=== PATIENT | male | born 1980 | race Caucasian/White ===

== ENCOUNTER 2019-01-05 20:30 | Observation (INO) ==
[2019-01-06 00:16] LABS: Alanine Aminotransferase 24 Units/L (7-52); Albumin 4.6 g/dL (3.5-5.7); Albumin/Globulin Ratio 1.4 (1.1-2.2); Alkaline Phosphatase 41 Units/L (34-104); Amylase 21 Units/L (29-103); Aspartate Amino Transferase 22 Units/L (13-39); BUN/Creatinine Ratio 15 (6-26); Bilirubin,Indirect 0.3 mg/dL (0.0-1.2); Bilirubin,Total 0.3 mg/dL (0.3-1.0); Blood Urea Nitrogen 13 mg/dL (6-20); Calcium 9.7 mg/dL (8.6-10.3); Carbon Dioxide 24 mEq/L (23-29); Chloride 102 mEq/L (98-107); Globulin 3.2 g/dL (2.4-3.5); Glucose 106 mg/dL (70-105); Lipase 27 Units/L (11-82); Osmolality,Calculated 283 (280-300); Potassium 3.7 mEq/L (3.5-5.1); Sodium 136 mEq/L (136-145); Total Protein 7.8 g/dL (6.4-8.9); eGFR For African Americans > 60 (> 60); eGFR For Non-African Americans > 60 (> 60)
[2019-01-06] MEDS ORDERED: Ondansetron 4 MG/2 ML VIAL IVP ONE (00:22)
[2019-01-06] MEDS ORDERED: Morphine Sulfate 2 MG/ML SYRINGE IVP ONE ×2 (00:22→04:25)
[2019-01-06 00:41] LABS: Basophils # 0.1 K/mcL (0.0-0.2); Basophils % 0.8 %; Eosinophils # 0.3 K/mcL (0.0-0.6); Eosinophils % 2.1 %; Hematocrit 44.4 % (37.5-50.1); Hemoglobin 14.3 g/dL (12.9-16.9); Immature Granulocytes % 0.3 % (0-4); Lymphocytes # 2.1 K/mcL (0.6-4.6); Lymphocytes % 17.5 %; Mean Corpuscular HGB Conc 32.2 g/dL (31.6-35.5); Mean Corpuscular Hemoglobin 27.5 pg (28.0-33.3); Mean Corpuscular Volume 85.4 fL (83.0-100.0); Monocytes # 0.6 K/mcL (0.0-1.3); Monocytes % 5.4 %; Neutrophils # 8.8 K/mcL (1.6-8.9); Platelet Count 379 K/mcL (140-400); Red Cell Distribution Width 13.7 % (11.5-14.5); Segmented Neutrophils % 73.9 %; White Blood Count 11.8 K/mcL (4.3-11.1)
[2019-01-06 02:20] LABS: Bilirubin,Urine Negative (Negative); Blood,Urine Negative (Negative); Clarity,Urine Clear (Clear); Color,Urine Yellow (Yellow); Glucose,Urine (UA) Normal (Normal); Ketones,Urine Trace mg/dL (Negative); Leukocyte Esterase,Urine Negative (Negative); Nitrite,Urine Negative (Negative); Protein,Urine Negative (Neg-Trace); Specific Gravity,Urine > 1.030 (1.010-1.025); Urobilinogen,Urine Normal (Normal)
[2019-01-06] MEDS ORDERED: Famotidine 20 MG/2 ML VIAL IVP ONE (04:25)
--- NOTE | 2019-01-06 04:33 | Emergency Department Note ---
Disposition Clinical Impression: Nausea & vomiting Qualifiers: Vomiting type: unspecified Vomiting Intractability: non-intractable Qualified Code(s): R11.2 - Nausea with vomiting, unspecified Abdominal pain Qualifiers: Abdominal location: right upper quadrant Qualified Code(s): R10.11 - Right upper quadrant pain Disposition: Admitted As Inpatient Condition: Fair Time of Disposition: 04:35 Abdominal Pain HPI - General Chief Complaint: ED Abdominal Pain Stated Complaint: Epigastric Pain Time Seen by Provider: 01/05/19 23:49 Source: patient Nursing Notes Reviewed: Yes Vital Signs Reviewed: Yes - History of Present Illness HPI Narrative: 38-year-old male complaining of right upper quadrant pain radiating from into the epigastric region. Denies any ripping or tearing pain pain does not radiate to her through the back. Denies any right shoulder pain. Movement does make it worse but denies any significant injury. Shunt has vomited several times today. Patient had several episodes of emesis here. The most recent was bilious. Patient has remained to have some dry heaves., Patient had a CT scan ordered by the family doctor this morning which did not show any significant abnormality. No sick contacts Pt Subjective Complaint: abdominal pain Onset (ago): week(s) (1) Consistency: constant, Worsening Location: RUQ, epigastric Pain Severity: moderate, severe Pain Scale: 9 Quality: stabbing, sharp, dull Radiation: RUQ, epigastric Migration to: epigastric Improves with: vomiting, medication Worsens with: eating, movement Associated symptoms: Reports: nausea, vomiting, constipation. Denies: diarrhea, hematemesis, hematochezia, melena, hematuria - Related Data Home Medications Medication Instructions Recorded Confirmed Ativan 02/18/18 Buspar 02/18/18 Ibuprofen 02/18/18 BuPROPion [Wellbutrin] 300 mg PO 01/06/19 LORazepam [Ativan] 0.5 mg PO 01/06/19 Allergies Allergy/AdvReac Type Severity Reaction Status Date / Time No Known Allergies Allergy Verified 01/05/19 21:03 All systems ED: reviewed and negative except as stated. Constitutional: Reports: weight change (10-12 pound weight loss over the last week). Denies: fever, chills, weakness Eyes: Denies: eye pain, eye discharge, vision change ENT ED: Denies: ear pain, throat pain, dental pain, hearing loss, epistaxis, c ongestion, dysphagia Cardiovascular: Denies: chest pain, palpitations, dyspnea on exertion, edema, syncope Respiratory: Denies: cough, dyspnea, wheezes, hemoptysis, stridor Gastrointestinal: Reports: abdominal pain, nausea, vomiting. Denies: diarrhea, constipation, hematemesis, melena, hematochezia Genitourinary: Denies: urgency, dysuria, frequency, hematuria Musculoskeletal: Denies: back pain, neck pain, arthralgia, myalgia Integumentary: Denies: rash, abrasion, lesions Neurological: Denies: headache, weakness, numbness, paresthesias, confusion, abnormal gait, vertigo Psychiatric: Denies: anxiety, depression, suicidal thoughts, homicidal thoughts, auditory hallucinations, visual hallucinations Endocrine: Denies: fatigue Hematological/Lymphatic: Denies: easy bleeding, easy bruising Allergic/Immunologic: Denies: facial swelling, urticaria Abdominal Pain PMH - Past Medical History Medical history: Reports: other Male Surgical History: Reports: herniorrhaphy Psychiatric history: Reports: anxiety - Social History Smoking status: Never smoker Alcohol use: Reports: none Drug use: Reports: none Physical Exam - General Limitations: no limitations General appearance: alert - Head Head exam: atraumatic, normocephalic, normal inspection - Eye Eye exam: Present: normal appearance, PERRL, EOMI - ENT ENT exam: normal exam, normal oropharynx, mucous membranes dry - Neck Neck exam: Present: normal inspection, full ROM, trachea midline - Chest Chest inspection: Present: normal inspection, symmetric chest wall rise - Respiratory Respiratory exam: Present: normal lung sounds bilaterally. Absent: respiratory distress, wheezes - Cardiovascular Cardiovascular exam: Present: regular rate, normal rhythm, normal heart sounds - Abdominal Exam Abdominal exam: Present: soft, Non-Tender, tenderness (Right upper quadrant and epigastric tenderness with a positive Romeo sign and seems to follow the liver border), normal bowel sounds. Absent: distention, guarding, rebound, rigidity Abdominal tenderness: Present: RUQ - Extremities Exam Extremities exam: Present: normal inspection, full ROM, normal capillary refill. Absent: tenderness, pedal edema - Back Exam Back exam: Present: normal inspection, full ROM. Absent: tenderness, CVA tenderness (R), CVA tenderness (L), muscle spasm, paraspinal tenderness, vertebral tenderness - Neurological Exam Neurological exam: Present: alert, oriented X3, CN II-XII intact - Psychiatric Psychiatric exam: Present: normal affect, normal mood - Skin Skin exam: Present: warm, dry, intact, normal color Course Course Narrative: Patient was given normal saline IV bolus of fluid, Zofran and morphine for pain. CT scan from earlier today was reviewed. Ultrasound report quadrant was obtained which showed no acute fluid collection, cholecystitis, cholelithiasis or choledocholithiasis Patient's nausea and pain did improve but persisted. Patient did receive a second dose of morphine. Patient will be admitted to Dr. Leroy for intractable nausea and vomiting with continued intractable nausea with multiple episodes in the emergency department w/ bilious emesis (which was witnessed by me). - Consultations Consultation #1: Dr. Leroy accepts patient Time: 03:05 Vital Signs Temperature 98.5 F 01/05/19 21:03 Pulse Rate 81 01/05/19 21:03 Respiratory Rate 20 01/05/19 21:03 Blood Pressure 143/92 01/05/19 21:03 O2 Sat by Pulse Oximetry 98 01/05/19 21:03 Temperature 98.0 F 01/06/19 07:35 Pulse Rate 80 01/06/19 07:35 Respiratory Rate 16 01/06/19 07:35 Blood Pressure 108/68 01/06/19 07:35 O2 Sat by Pulse Oximetry 98 01/06/19 07:35 Oxygen Delivery Oxygen Delivery Room Air Abdominal Pain - Differential Diagnosis Differential Diagnosis: Likely: constipation, colonic obstruction, diverti culitis, gastroenteritis, pancreatitis, small bowel obstruction - Medical Records Medical records reviewed: Yes I reviewed the patient's medical records. - Lab Data Lab results reviewed: Yes I reviewed the patient's lab results. Result diagrams: 01/06/19 06:44 01/06/19 06:44 Lab Results 01/05/19 01/05/19 01/06/19 Range/Units 22:29 22:29 02:01 WBC 11.8 H (4.3-11.1) K/mcL RBC 5.20 (4.19-5.50) M/mcL Hgb 14.3 (12.9-16.9) g/dL Hct 44.4 (37.5-50.1) % MCV 85.4 (83.0-100.0) fL MCH 27.5 L (28.0-33.3) pg MCHC 32.2 (31.6-35.5) g/dL RDW 13.7 (11.5-14.5) % Plt Count 379 (140-400) K/mcL MPV 9.0 L (9.4-12.4) fL Immature Gran % 0.3 (0-4) % Seg Neutrophils % 73.9 % Lymphocytes % 17.5 % Monocytes % 5.4 % Eosinophils % 2.1 % Basophils % 0.8 % Neutrophils # 8.8 (1.6-8.9) K/mcL Lymphocytes # 2.1 (0.6-4.6) K/mcL Monocytes # 0.6 (0.0-1.3) K/mcL Eosinophils # 0.3 (0.0-0.6) K/mcL Basophils # 0.1 (0.0-0.2) K/mcL Sodium 136 (136-145) mEq/L Potassium 3.7 (3.5-5.1) mEq/L Chloride 102 (98-107) mEq/L Carbon Dioxide 24 (23-29) mEq/L BUN 13 (6-20) mg/dL Creatinine 0.87 (0.70-1.30) mg/dL Est GFR ( Amer) > 60 (> 60) Est GFR (Non-Af Amer) > 60 (> 60) BUN/Creatinine Ratio 15 (6-26) Glucose 106 H (70-105) mg/dL Calculated Osmolality 283 (280-300) Calcium 9.7 (8.6-10.3) mg/dL Total Bilirubin 0.3 (0.3-1.0) mg/dL Direct Bilirubin 0.0 (0.0-0.2) mg/dL Indirect Bilirubin 0.3 (0.0-1.2) mg/dL AST 22 (13-39) Units/L ALT 24 (7-52) Units/L Alkaline Phosphatase 41 (34-104) Units/L Serum Total Protein 7.8 (6.4-8.9) g/dL Albumin 4.6 (3.5-5.7) g/dL Globulin 3.2 (2.4-3.5) g/dL Albumin/Globulin Ratio 1.4 (1.1-2.2) Amylase 21 L (29-103) Units/L Lipase 27 (11-82) Units/L Urine Color Yellow (Yellow) Urine Clarity Clear (Clear) Urine pH 6.0 (5.0-8.0) pH Units Ur Specific [place] > 1.030 H (1.010-1.025) Urine Protein Negative (Neg-Trace) mg/dL Urine Glucose (UA) Normal (Normal) mg/dL Urine Ketones Trace H (Negative) mg/dL Urine Blood Negative (Negative) Urine Nitrite Negative (Negative) Urine Bilirubin Negative (Negative) Urine Urobilinogen Normal (Normal) mg/dL Ur Leukocyte Esterase Negative (Negative) Ur Culture Indicated? NO (NO) - Radiology Data Radiology results reviewed: Yes I reviewed the patient's radiology results. Chest/Abdomen X-ray 01/06/19 00:50 IMPRESSION: No acute radiographic abnormality identified. D/ / Joann Winslow Cha, MD / Joann Winslow Cha, MD Interpreting Provider: Joann Winslow Cha, MD Gallbladder Ultrasound 01/06/19 02:40 IMPRESSION: Unremarkable right upper quadrant ultrasound. Normal gallbladder and bile ducts. D/ / Richie Houston / Richie Houston Interpreting Provider: Richie Houston
[2019-01-06] MEDS ORDERED: Naloxone 0.4 MG/ML INJ IVP PRN (06:10)
[2019-01-06] MEDS ORDERED: traMADol 50 MG TABLET PO PRN (06:12)
[2019-01-06] MEDS ORDERED: 0.9 % Sodium Chloride 1,000 ML IVC SCH (06:15)
--- NOTE | 2019-01-06 06:29 | Internal Med History&Physical ---
Date of Encounter: 01/06/19 Time of Encounter: 05:45 Internal Medicine - H&P: HPI Chief complaint: Abdominal Pain, Nausea/Vomiting Admitted From: Home Plans for Post Hospital Care: Home History of present illness: Mr. Pennington is a 38 year old male with past medical history significant for anxiety who presents for 1 week history of right upper quadrant abdominal pain radiating to the center of his abdomen and nausea and vomiting for past 2 days. Reports pain as being sharp and rates it at 8/10 when at its worst. Denies any alleviating or exacerbating factors. Has tried Tylenol at home with minimal improvement. Denies any fevers, chills, diarrhea. Does report that his stool has been consultant in color and he has been having smaller bowel movements than normal but denies any other changes. Also reports 12 pound weight loss over past week as well due to decreased intake. Denies any hematochezia or hematemesis. Denies any similar symptoms in the past. Denies any sick contacts. Seen his PCP for same who ordered a CT of the abdomen and pelvis which showed a 1.2 cm pulmonary nodule seen in the left upper lobe which recommended CT scan of the chest to better evaluate but otherwise unremarkable abdomen and pelvis. ER obtained a chest/abdomen x-ray which showed no acute radiographic abnormality. ER also performed a gallbladder ultrasound which showed an unremarkable right upper quadrant ultrasound and normal gallbladder and bile ducts. ER gave patient Pepcid, morphine, and Zofran which he reports completely relieved his nausea and has improved his pain. Currently denies any headache, chest pain, shortness of breath, nausea, or bladder changes. Reports following regularly with his PCP. Past Med Surg Social Fam HX - Past Medical History Psychiatric history: anxiety - Past Surgical History Surgical History: herniorrhaphy - Social History Smoking Status: Never smoker Smokeless Tobacco Status: No Alcohol use: none Drug use: none - Family History Mother Hx Family Cardiac Disorders: No Hx Family Respiratory Disorders: No Hx Family Cancer: No Hx Family GI Disorders: No Hx Family Genitourinary Disorders: No Hx Family Endocrine Disorder: No Hx Family Musculoskeletal Disorders: No Hx Family Neuromuscular Disorders: No Hx Family Neurologic Disorders: No Hx Family HEENT Disorders: No Hx Family Autoimmune Disorders: No Hx Family Reproductive Disorders: No Hx Family Psychosocial Disorders: No Hx Family Medical Disorders: No Internal Medicine - H&P: Meds Ativan 02/18/18 [History] Buspar 02/18/18 [History] Ibuprofen 02/18/18 [History] BuPROPion [Wellbutrin] 300 mg PO 01/06/19 [History] LORazepam [Ativan] 0.5 mg PO 01/06/19 [History] Allergy/AdvReac Type Severity Reaction Status Date / Time No Known Allergies Allergy Verified 01/05/19 21:03 All Systems PM: A 10-system review of systems was performed and is negative for pertinent findings except as documented above in the HPI. - Constitutional Vitals: Temp Pulse Resp BP Pulse Ox 98.0 F 84 15 112/75 97 01/06/19 05:44 01/06/19 05:44 01/06/19 05:44 01/06/19 05:44 01/06/19 05:44 Exam: General: Alert and oriented. Skin:Normal color, no rash, no lesions. HEENT:EOM, pupils equal, round and reactive. Cardiovascular:Normal S1 & S2, no rubs, murmurs or gallops. No JVD. Pulse regular. Lungs:Normal breath sounds, no wheezes or crackles. Abdomen:Soft, tender to palpation in right upper quadrant, negative murphys sign, no rigidity, hyperactive bowel sounds. Extremities:No deformity, no edema or tenderness, no joint swelling or clubbing. Neurological:Normal cognition and motor skills. Pulses:Carotid and radial pulses normal +2. Rest of the physical exam is non contributory. Internal Med - H&P Results - Labs CBC & Chem 7: 01/05/19 22:29 01/05/19 22:29 Labs: Short CBC 01/05/19 Range/Units 22:29 WBC 11.8 H (4.3-11.1) K/mcL Hgb 14.3 (12.9-16.9) g/dL Hct 44.4 (37.5-50.1) % Plt Count 379 (140-400) K/mcL Neutrophils # 8.8 (1.6-8.9) K/mcL BMP 01/05/19 22:29 Sodium 136 Potassium 3.7 Chloride 102 Carbon Dioxide 24 BUN 13 Creatinine 0.87 Glucose 106 H Calcium 9.7 Liver Function 01/05/19 Range/Units 22:29 Total Bilirubin 0.3 (0.3-1.0) mg/dL Direct Bilirubin 0.0 (0.0-0.2) mg/dL AST 22 (13-39) Units/L ALT 24 (7-52) Units/L Alkaline Phosphatase 41 (34-104) Units/L Albumin 4.6 (3.5-5.7) g/dL Urine 01/06/19 Range/Units 02:01 Urine Color Yellow (Yellow) Urine Clarity Clear (Clear) Urine pH 6.0 (5.0-8.0) pH Units Ur Specific [place] > 1.030 H (1.010-1.025) Urine Protein Negative (Neg-Trace) mg/dL Urine Glucose (UA) Normal (Normal) mg/dL - Impressions ITS Impressions Chest/Abdomen X-ray 01/06/19 00:50 IMPRESSION: No acute radiographic abnormality identified. D/ / Joann Winslow Cha, MD / Joann Winslow Cha, MD Interpreting Provider: Joann Winslow Cha, MD Gallbladder Ultrasound 01/06/19 02:40 IMPRESSION: Unremarkable right upper quadrant ultrasound. Normal gallbladder and bile ducts. D/ / Richie Houston / Richie Houston Interpreting Provider: Richie Houston - Assessment and Plan (1) Abdominal pain Current Visit: Yes Status: Acute Assessment and plan: Reports 1 week history of right upper quadrant abdominal pain radiating to the center of his abdomen. Also reports 12 pound weight loss over past week as well due to decreased intake. Seen his PCP for same who ordered a CT of the abdomen and pelvis which showed a 1.2 cm pulmonary nodule seen in the left upper lobe which recommended CT scan of the chest to better evaluate but otherwise unremarkable abdomen and pelvis. ER obtained a chest/abdomen x-ray which showed no acute radiographic abnormality. ER also performed a gallbladder ultrasound which showed an unremarkable right upper quadrant ultrasound and normal gallbladder and bile ducts. Symptoms improved with Pepcid, Morphine, and Zofran in ER. Continue PRN pain and nausea medications. Nutrition consult. Start 1L fluid hydration. Advance diet as tolerated. Qualifiers: Abdominal location: right upper quadrant Qualified Code(s): R10.11 - Right upper quadrant pain (2) Nausea & vomiting Current Visit: Yes Status: Acute Assessment and plan: Plan as stated above. Qualifiers: Vomiting type: unspecified Vomiting Intractability: non-intractable Qualified Code(s): R11.2 - Nausea with vomiting, unspecified (3) Leukocytosis Current Visit: Yes Status: Acute Assessment and plan: White blood cell count minimally increased on admission 11.8. We will hold off on any antibiotic therapy at this time. Repeat labs ordered. Qualifiers: Leukocytosis type: unspecified Qualified Code(s): D72.829 - Elevated white blood cell count, unspecified (4) Abnormal CT scan Current Visit: Yes Status: Acute Assessment and plan: CT of the abdomen and pelvis which showed a 1.2 cm pulmonary nodule seen in the left upper lobe which recommended CT scan of the chest to better evaluate but otherwise unremarkable abdomen and pelvis. Follow-up with PCP as outpatient. (5) Anxiety Current Visit: Yes Status: Chronic Assessment and plan: Continue home medications once verified. - Time Spent With Patient Total time spent is greater than 50% in coordination of care (as documented) at patient's floor/unit and/or counseling patient:
[2019-01-06 06:58] LABS: Basophils # 0.1 K/mcL (0.0-0.2); Basophils % 0.8 %; Eosinophils # 0.2 K/mcL (0.0-0.6); Eosinophils % 2.4 %; Hematocrit 43.3 % (37.5-50.1); Immature Granulocytes % 0.2 % (0-4); Lymphocytes # 2.3 K/mcL (0.6-4.6); Mean Corpuscular HGB Conc 32.3 g/dL (31.6-35.5); Mean Corpuscular Hemoglobin 27.1 pg (28.0-33.3); Mean Corpuscular Volume 83.9 fL (83.0-100.0); Mean Platelet Volume 8.5 fL (9.4-12.4); Monocytes # 0.6 K/mcL (0.0-1.3); Monocytes % 6.8 %; Neutrophils # 5.9 K/mcL (1.6-8.9); Platelet Count 341 K/mcL (140-400); Red Blood Count 5.16 M/mcL (4.19-5.50); Red Cell Distribution Width 13.6 % (11.5-14.5); Segmented Neutrophils % 64.8 %; White Blood Count 9.1 K/mcL (4.3-11.1)
[2019-01-06 07:20] LABS: Alanine Aminotransferase 19 Units/L (7-52); Albumin 4.5 g/dL (3.5-5.7); Albumin/Globulin Ratio 1.5 (1.1-2.2); Alkaline Phosphatase 40 Units/L (34-104); Aspartate Amino Transferase 14 Units/L (13-39); BUN/Creatinine Ratio 14 (6-26); Bilirubin,Total 0.4 mg/dL (0.3-1.0); Blood Urea Nitrogen 11 mg/dL (6-20); Calcium 9.8 mg/dL (8.6-10.3); Carbon Dioxide 26 mEq/L (23-29); Chloride 102 mEq/L (98-107); Glucose 108 mg/dL (70-105); Osmolality,Calculated 288 (280-300); Potassium 3.7 mEq/L (3.5-5.1); Sodium 139 mEq/L (136-145); Total Protein 7.5 g/dL (6.4-8.9); eGFR For African Americans > 60 (> 60); eGFR For Non-African Americans > 60 (> 60)
[2019-01-06] MEDS ORDERED: Ibuprofen 400 MG TABLET PO PRN (08:46)
[2019-01-06] MEDS ORDERED: Ondansetron 4 MG/2 ML VIAL IVP PRN (08:49)
[2019-01-06] MEDS: Acetaminophen 325 MG TABLET PO PRN ×2 (10:42→17:20)
[2019-01-06] MEDS ORDERED: Acetaminophen 325 MG TABLET PO SCH (12:00)
--- NOTE | 2019-01-06 13:22 | Event Note ---
Date of Encounter: 01/06/19 Time of Encounter: 13:16 S Patient still w RUQ abd pain, less n/v today but no interest in PO intake at this point. Pain started 9 days ago and has been intermittent, usually severe, nonradiating. No hx intraabdominal pathology including no GB or kidney stones, no pancreatitis, renal or bowel issues. Denies testicular pain. is present who is RN here, and reports this is uncharacteristic/unusual for patient to complain of any pain or have N/V. Denies fevers or diarrhea. O vitals reviewed, wnl abd soft, nondistended, does have mild TTP RUQ UA w trace ketones, no blood outpt CT abd without acute pathology RUQ US without acute pathology XR abd without acute pathology A RUQ abd pain, unknown etiology Refractory N/V w inability to PO - some improvement P HIDA scan continue fluids and supportive care for nausea and pain
[2019-01-07 04:50] LABS: Hematocrit 42.8 % (37.5-50.1); Hemoglobin 13.8 g/dL (12.9-16.9); Mean Corpuscular HGB Conc 32.2 g/dL (31.6-35.5); Mean Corpuscular Hemoglobin 27.4 pg (28.0-33.3); Mean Corpuscular Volume 85.1 fL (83.0-100.0); Mean Platelet Volume 8.5 fL (9.4-12.4); Platelet Count 328 K/mcL (140-400); Red Blood Count 5.03 M/mcL (4.19-5.50); Red Cell Distribution Width 13.5 % (11.5-14.5); White Blood Count 7.7 K/mcL (4.3-11.1)
[2019-01-07 05:01] LABS: INR 1.1
[2019-01-07 05:11] LABS: Alanine Aminotransferase 18 Units/L (7-52); Albumin 4.1 g/dL (3.5-5.7); Albumin/Globulin Ratio 1.4 (1.1-2.2); Alkaline Phosphatase 34 Units/L (34-104); Aspartate Amino Transferase 14 Units/L (13-39); BUN/Creatinine Ratio 12 (6-26); Bilirubin,Direct 0.1 mg/dL (0.0-0.2); Bilirubin,Indirect 0.3 mg/dL (0.0-1.2); Bilirubin,Total 0.4 mg/dL (0.3-1.0); Blood Urea Nitrogen 9 mg/dL (6-20); Calcium 9.4 mg/dL (8.6-10.3); Carbon Dioxide 24 mEq/L (23-29); Chloride 106 mEq/L (98-107); Globulin 2.9 g/dL (2.4-3.5); Glucose 94 mg/dL (70-105); Magnesium 1.9 mg/dL (1.6-2.6); Osmolality,Calculated 286 (280-300); Phosphorous 3.4 mg/dL (2.7-4.5); Potassium 3.8 mEq/L (3.5-5.1); Sodium 139 mEq/L (136-145); eGFR For African Americans > 60 (> 60); eGFR For Non-African Americans > 60 (> 60)
--- NOTE | 2019-01-07 11:04 | Internal Med Progress Note ---
Hospitalist Progress Note - Encounter Date of Encounter: 01/07/19 Time of Encounter: 11:04 - Exam Vitals: Temp Pulse Resp BP Pulse Ox 98.8 F 77 17 109/75 97 01/07/19 08:01 01/07/19 08:01 01/07/19 08:01 01/07/19 08:01 01/07/19 08:01 Internal Medicine: Result - Labs CBC & Chem 7: 01/07/19 04:39 01/07/19 04:39 Labs: Short CBC 01/07/19 Range/Units 04:39 WBC 7.7 (4.3-11.1) K/mcL Hgb 13.8 (12.9-16.9) g/dL Hct 42.8 (37.5-50.1) % Plt Count 328 (140-400) K/mcL BMP 01/07/19 04:39 Sodium 139 Potassium 3.8 Chloride 106 Carbon Dioxide 24 BUN 9 Creatinine 0.77 Glucose 94 Calcium 9.4 Liver Function 01/07/19 Range/Units 04:39 Total Bilirubin 0.4 (0.3-1.0) mg/dL Direct Bilirubin 0.1 (0.0-0.2) mg/dL AST 14 (13-39) Units/L ALT 18 (7-52) Units/L Alkaline Phosphatase 34 (34-104) Units/L Albumin 4.1 (3.5-5.7) g/dL - ABG Interpretation ABG results: PT/INR, D-dimer PT 13.0 Seconds (9.4-12.1) H 01/07/19 04:39 - Impressions Impressions Gallbladder Ultrasound 01/06/19 02:40 IMPRESSION: Unremarkable right upper quadrant ultrasound. Normal gallbladder and bile ducts. D/ / Richie Houston / Richie Houston Interpreting Provider: Richie Houstno Consult Discharge Plan - Plan Referrals: NONE,PCP [Primary Care Provider] -
--- NOTE | 2019-01-07 12:58 | Discharge Summary ---
- NOTES TO OUTPATIENT PROVIDER Notes to Outpatient Provider: Abd pain causing N/V, of unknown etiology. CT abd, RUQ US, and HIDA all unremarkable. Date of Encounter: 01/07/19 Time of Encounter: 12:48 Hospital course: Dear Doctors, I recently had the opportunity to care for this patient during their recent hospital stay at [facility]. Jacquelyn Pennington is a 38 M w hx anxiety, obesity, who presented at time of admission with abdominal pain and nausea/vomiting. Symptoms started 1 week prior to admission, episodic but lasting for hours, most on R side, nonradiating. No dysuria or hematuria, no hematochezia or diarrhea. No hx kidney or gall stones. Patient seen by outpatient PCP who ordered CT abd which was unremarkable. Shortly thereafter patient started vomiting and thus came to ED. In the ED, vitals unremarkable. XR abd unremarkable. RUQ US unremarkable. Labs unremarkable except UA showing trace ketones consistent with starvation ketosis. In the hospital, patient given IV fluids and nausea and pain control with good effect. A HIDA scan was obtained given R sided pain and obesity, which was negative. Patient able to tolerate/maintain PO, and thus was discharged to outpatient follow up. Dx: Abdominal pain Pertinent tests/consults: CT abd, RUQ US, HIDA all unremarkable Follow up: PCP Tests pending: none Med changes: none Mental status: awake, fully oriented Code status: Full It has been my pleasure participating in this patient's care. Please contact me with any questions or concerns regarding their hospital stay. Sincerely, Danielito Castillo MD - Discharge Medications Prescriptions: Continued LORazepam [Ativan] 0.5 mg PO DAILY PRN PRN Reason: Anxiety Bupropion HCl [Wellbutrin Xl] 300 mg PO DAILY Home Medications: LORazepam [Ativan] 0.5 mg PO DAILY PRN 01/06/19 [History] Bupropion HCl [Wellbutrin Xl] 300 mg PO DAILY 01/07/19 [History] Allergies/Adverse Reactions: Allergy/AdvReac Type Severity Reaction Status Date / Time No Known Allergies Allergy Verified 01/05/19 21:03 Date of admission: 01/06/19 04:37 Primary care physician: PCP NONE Consults: 01/06/19 06:12 Consult to Nutrition [CONS] Routine Comment: Consulting Provider: NUTRITION Reason for Dietary Consult: MST Score - Constitutional Vitals: Temp Pulse Resp BP Pulse Ox 98.4 F 78 16 115/79 99 01/07/19 11:45 01/07/19 11:45 01/07/19 11:45 01/07/19 11:45 01/07/19 11:45 Exam: General: NAD, good eye contact, well appearing Thoracic: Normal breath sounds b/l, no wheezing or crackles Cardio: Normal S1 and S2, regular rate and rhythm Abdomen: Soft, nondistended. BS present. R rectus sheath with mild tenderness to palpation, is "sore" after vomiting Extremities: Warm, well perfused. DP pulses 2+ b/l. No edema. Skin: Intact. No rashes, bruises, or ulcers Neuro: Awake, fully oriented. Speech fluent - Patient Status Disposition: Home, Self-Care Condition: Good Functional capacity at discharge: independent ambulation Overall status at discharge: patient is back to baseline - Discharge Instructions Follow Up With: NONE,PCP [Primary Care Provider] - - Diet and Activity Activity: resume usual activities as tolerated Diet: advance to your usual diet
[2019-01-08 14:51] VITALS: BP 123/82
== END 2019-01-07 16:15 | disposition home or self-care (01) ==
LOC: EMEROOARM 20:30 → 3ANU 20:30 → SUATTDRO 01-06 04:37 → 3ANU 01-06 05:58
PROVIDERS: ADMIT Family Medicine; ATTEND Internal Medicine

== ENCOUNTER 2019-12-25 03:17 | Observation (INO) ==
[2019-12-25] MEDS ORDERED: 0.9 % Sodium Chloride 1,000 ML IVC ONE (03:23)
[2019-12-25] MEDS ORDERED: *HR* HYDROmorphone (PF) 1 MG/ML SYRINGE IVP ONE (03:40)
[2019-12-25] MEDS ORDERED: Promethazine 12.5 MG in 0.9 % Sodium Chloride 50 ML IVPB ONE (03:41)
[2019-12-25 03:50] LABS: Basophils # 0.1 K/mcL (0.0-0.2); Basophils % 0.5 %; Eosinophils # 0.1 K/mcL (0.0-0.6); Eosinophils % 1.2 %; Hematocrit 42.8 % (37.5-50.1); Hemoglobin 13.9 g/dL (12.9-16.9); Immature Granulocytes % 0.5 % (0-4); Lymphocytes % 18.7 %; Mean Corpuscular HGB Conc 32.5 g/dL (31.6-35.5); Mean Corpuscular Hemoglobin 27.2 pg (28.0-33.3); Mean Corpuscular Volume 83.8 fL (83.0-100.0); Mean Platelet Volume 8.4 fL (9.4-12.4); Monocytes # 0.5 K/mcL (0.0-1.3); Monocytes % 4.3 %; Neutrophils # 8.2 K/mcL (1.6-8.9); Platelet Count 387 K/mcL (140-400); Red Blood Count 5.11 M/mcL (4.19-5.50); Red Cell Distribution Width 13.8 % (11.5-14.5); Segmented Neutrophils % 74.8 %; White Blood Count 10.9 K/mcL (4.3-11.1)
[2019-12-25] MEDS ORDERED: *HR* Promethazine 25 MG/ML VIAL IVP ONE (04:00)
[2019-12-25 04:10] LABS: Alanine Aminotransferase 28 Units/L (7-52); Albumin 4.6 g/dL (3.5-5.7); Albumin/Globulin Ratio 1.5 (1.1-2.2); Alkaline Phosphatase 52 Units/L (34-104); Aspartate Amino Transferase 19 Units/L (13-39); BUN/Creatinine Ratio 19 (6-26); Bilirubin,Indirect 0.3 mg/dL (0.0-1.0); Bilirubin,Total 0.3 mg/dL (0.3-1.0); Blood Urea Nitrogen 17 mg/dL (6-20); Calcium 9.8 mg/dL (8.6-10.3); Carbon Dioxide 25 mEq/L (23-29); Chloride 104 mEq/L (98-107); Glucose 143 mg/dL (70-105); Lipase 36 Units/L (11-82); Osmolality,Calculated 288 (280-300); Potassium 4.1 mEq/L (3.5-5.1); Sodium 137 mEq/L (136-145); Total Protein 7.6 g/dL (6.4-8.9); eGFR For African Americans > 60 (> 60); eGFR For Non-African Americans > 60 (> 60)
[2019-12-25 04:54] LABS: Bilirubin,Urine Negative (Negative); Blood,Urine Negative (Negative); Clarity,Urine Clear (Clear); Color,Urine Light-Yellow (Yellow); Glucose,Urine (UA) Normal (Normal); Ketones,Urine Negative (Negative); Leukocyte Esterase,Urine Negative (Negative); Nitrite,Urine Negative (Negative); Protein,Urine Negative (Neg-Trace); Specific Gravity,Urine 1.022 (1.010-1.025); Urobilinogen,Urine Normal (Normal)
[2019-12-25 05:35] LABS: Adenovirus Not Detected (Not Detect); Bordetella Pertussis Not Detected (Not Detect); Chlamydophila pneumoniae Not Detected (Not Detect); Coronavirus 229E Not Detected (Not Detect); Coronavirus HKU1 Not Detected (Not Detect); Coronavirus NL63 Not Detected (Not Detect); Coronavirus OC43 Not Detected (Not Detect); Human Metapneumovirus Not Detected (Not Detect); Human Rhinovirus/Enterovirus DETECTED (Not Detect); Influenza A Subtype 2009 H1 Not Detected (Not Detect); Influenza B Not Detected (Not Detect); Mycoplasma pneumoniae Not Detected (Not Detect); Parainfluenza Virus 1 Not Detected (Not Detect); Parainfluenza Virus 2 Not Detected (Not Detect); Parainfluenza Virus 3 Not Detected (Not Detect); Parainfluenza Virus 4 Not Detected (Not Detect); Respiratory Syncytial Virus Not Detected (Not Detect); SARS-CoV-2 Not Detected (Not Detect)
[2019-12-25] MEDS ORDERED: *HR* HYDROmorphone (PF) 1 MG/ML SYRINGE IVP PRN ×3 (06:55→17:06)
[2019-12-25] MEDS ORDERED: Ondansetron 4 MG/2 ML VIAL IVP PRN ×2 (06:56→11:30)
[2019-12-25] MEDS ORDERED: Ringers Solution, Lactated 1,000 ML IVC SCH ×2 (07:00→11:30)
[2019-12-25] MEDS ORDERED: Bupivacaine/EPI 1:200k 0.25%PF 10 ML VIAL INFILT ONE (08:37)
[2019-12-25] MEDS ORDERED: *HR* Midazolam HCl 2 MG/2 ML VIAL ONE (08:54)
[2019-12-25] MEDS ORDERED: Lidocaine -MPF 2% 2 ML VIAL ONE (08:54)
[2019-12-25] MEDS ORDERED: *HR* Propofol 200 MG/20 ML VIAL IVP ONE (08:54)
[2019-12-25] MEDS ORDERED: *HR* FentaNYL (PF) 100 MCG/2 ML VIAL ONE (08:54)
[2019-12-25] MEDS ORDERED: Lidocaine HCL 4 ML Topical Solution (Laryng-O-Jet Kit Sterile Pak) TP ONE (08:54)
[2019-12-25] MEDS ORDERED: *HR* Succinylcholine 200 MG/10 ML VIAL IVP ONE (08:54)
[2019-12-25] MEDS ORDERED: *HR* Rocuronium Bromide 50 MG/5 ML VIAL ONE (08:54)
[2019-12-25] MEDS ORDERED: Isovue-300 50ML VIAL ONE (08:55)
[2019-12-25] MEDS ORDERED: Metoclopramide 10 MG/2 ML VIAL ONE (09:04)
[2019-12-25] MEDS ORDERED: Acetaminophen IV 1,000 MG/100 ML INFUS..BTL ONE (09:04)
[2019-12-25] MEDS ORDERED: Famotidine 20 MG/2 ML VIAL ONE (09:04)
[2019-12-25] MEDS ORDERED: Dexamethasone 4 MG/ML VIAL ONE (09:39)
[2019-12-25] MEDS ORDERED: Ondansetron 4 MG/2 ML VIAL ONE (09:39)
[2019-12-25] MEDS ORDERED: Ketorolac 30 MG/ML VIAL ONE (10:11)
[2019-12-25] MEDS ORDERED: Ringers Solution, Lactated 500 ML IVC ONE ×2 (11:30→17:05)
[2019-12-25] MEDS ORDERED: *HR* OxyCODONE Immed Rel 5 MG TABLET PO PRN (11:30)
[2019-12-25] MEDS ORDERED: Acetaminophen 325 MG TABLET PO PRN (11:30)
[2019-12-26 06:45] LABS: Basophils % 0.1 %; Eosinophils % 0.3 %; Hematocrit 40.2 % (37.5-50.1); Hemoglobin 12.7 g/dL (12.9-16.9); Immature Granulocytes % 0.4 % (0-4); Lymphocytes % 12.9 %; Mean Corpuscular HGB Conc 31.6 g/dL (31.6-35.5); Mean Corpuscular Hemoglobin 26.7 pg (28.0-33.3); Mean Corpuscular Volume 84.5 fL (83.0-100.0); Mean Platelet Volume 8.7 fL (9.4-12.4); Monocytes # 0.9 K/mcL (0.0-1.3); Monocytes % 5.9 %; Neutrophils # 12.2 K/mcL (1.6-8.9); Platelet Count 352 K/mcL (140-400); Red Blood Count 4.76 M/mcL (4.19-5.50); Red Cell Distribution Width 14.4 % (11.5-14.5); Segmented Neutrophils % 80.4 %; White Blood Count 15.1 K/mcL (4.3-11.1)
[2019-12-26 06:54] VITALS: BP 120/81
== END 2019-12-26 10:02 | disposition home or self-care (01) ==
LOC: EMEROOARM 03:17 → 3BNU 03:17
PROVIDERS: ADMIT Surgery; ATTEND Surgery